=== PATIENT | female | born 1980 | race Caucasian/White ===

== ENCOUNTER → 2020-05-18 | Outpatient (CLI) | payer OTHER | LOC: LAB SHORT 13:53 → PLD 13:53 | DX: N87.9 Dysplasia of cervix uteri, unspecified (principal) | CPT/HCPCS: 88305 ==

== ENCOUNTER → 2021-02-09 | Outpatient (CLI) | payer OTHER ==
[2021-02-11 13:08] LABS: HPV 16 Negative (Negative); HPV 18 Negative (Negative); HPV OTHER HR TYPES Positive (Negative)
[2021-02-12 11:03] LABS: CHLAMYDIA TRACHOMATIS, NAA Negative (Negative)
== END | disposition home or self-care (01) ==
LOC: LAB 10:31 → LAB SHORT 10:31
PROVIDERS: Family Medicine
DX: Z01.419 Encounter for gynecological examination (general) (routine) without abnormal findings (principal); Z11.3 Encounter for screening for infections with a predominantly sexual mode of transmission
CPT/HCPCS: 87491; 87591; 87624; 87625; G0123

== ENCOUNTER → 2022-04-04 | Outpatient (CLI) | payer OTHER ==
[2022-04-06 03:11] LABS: CHLAMYDIA TRACHOMATIS, NAA Negative (Negative)
== END | disposition home or self-care (01) ==
LOC: LAB SHORT 16:24 → LAB 16:24
PROVIDERS: Family Medicine
DX: R87.619 Unspecified abnormal cytological findings in specimens from cervix uteri (principal)
CPT/HCPCS: 87491; 87591

== ENCOUNTER → 2022-04-04 | Outpatient (CLI) | payer OTHER | LOC: LAB SHORT 07:54 → LAB 07:54 | DX: D26.0 Other benign neoplasm of cervix uteri (principal); R87.619 Unspecified abnormal cytological findings in specimens from cervix uteri | CPT/HCPCS: 88305 ==

== ENCOUNTER → 2023-06-21 | Outpatient (CLI) | payer OTHER | LOC: LAB SHORT 13:03 → PLD 13:03 → LAB 13:03 | DX: D26.0 Other benign neoplasm of cervix uteri (principal) | CPT/HCPCS: 88305 ==

== ENCOUNTER → 2024-05-21 | Outpatient (CLI) | payer OTHER ==
[2024-05-27 07:46] LABS: HPV GENOTYPE 16 BY TMA Not Detected; HPV GENOTYPE 18/45 BY TMA Not Detected; HPV HIGH RISK BY TMA Detected; HPV SOURCE Cervical; HPVG SOURCE Cervical
== END ==
LOC: LAB SHORT 09:51 → LAB 09:51
PROVIDERS: Advanced Practice Midwife
DX: Z01.419 Encounter for gynecological examination (general) (routine) without abnormal findings (principal)
CPT/HCPCS: 87624; 87625; G0123

== ENCOUNTER → 2025-07-15 | Outpatient (CLI) | payer OTHER ==
[2025-07-18 08:10] LABS: HPVG SOURCE Cervical
== END | disposition home or self-care (01) ==
LOC: LAB 14:40 → LAB SHORT 14:40
PROVIDERS: Advanced Practice Midwife
DX: Z01.419 Encounter for gynecological examination (general) (routine) without abnormal findings (principal)
CPT/HCPCS: 87624; 87625; G0145

== ENCOUNTER → 2025-08-22 | Outpatient (CLI) | payer OTHER | LOC: LAB SHORT 13:17 → LAB 13:17 | DX: N87.9 Dysplasia of cervix uteri, unspecified (principal) | CPT/HCPCS: 88305 ==